=== PATIENT | male | born 1990 | race Two or more races ===

== ENCOUNTER 2021-05-03 16:31 | Emergency (ER) | payer OTHER ==
[~2021-05-03] VITALS: Ht 172.7 cm; Wt 68.5 kg
== END 2021-05-03 20:04 | disposition home or self-care (01) ==
LOC: ER 16:31
DX: R53.83 Other fatigue (principal); G47.30 Sleep apnea, unspecified

== ENCOUNTER 2021-05-20 10:06 | Emergency (ER) | payer OTHER ==
[~2021-05-20] VITALS: Ht 172.7 cm; Wt 68.0 kg
[2021-05-20] MEDS ORDERED: DOXYCYCLINE HY100 MG PO (11:08)
[2021-05-21] MEDS ORDERED: KETO10TA2 PO (07:24)
[2021-05-21] MEDS ORDERED: CENTANY30 GM TOP (07:24)
== END 2021-05-20 11:29 | disposition home or self-care (01) ==
LOC: ER 10:06
DX: A51.0 Primary genital syphilis (principal); A64 Unspecified sexually transmitted disease

== ENCOUNTER 2021-05-21 05:28 | Emergency (ER) | payer OTHER ==
[~2021-05-21] VITALS: Ht 172.7 cm; Wt 68.0 kg
[~2021-05-21 05:28] MED LIST: DOXYCYCLINE HY100 MG PO
[2021-05-21] MEDS ORDERED: CENTANY30 GM TOP (07:24)
[2021-05-21] MEDS ORDERED: KETO10TA2 PO (07:24)
== END 2021-05-21 07:58 | disposition home or self-care (01) ==
LOC: ER 05:28
DX: N48.1 Balanitis (principal)